=== PATIENT | male | born 1980 | race Caucasian/White ===

== ENCOUNTER 2025-01-24 10:32 | Outpatient (CLI) | payer OTHER, SELFPAY ==
--- NOTE | 2025-01-24 10:34 | XR_ITS ---
PROCEDURE INFORMATION: Exam: XR Left Knee Exam date and time: 01/24/2025 10:39 AM Age: 44 years old Clinical indication: Pain; Knee; Left; Additional info: Pain; P/a lat TECHNIQUE: Imaging protocol: Radiologic exam of the left knee. Views: 1 or 2 views. COMPARISON: No relevant prior studies available. FINDINGS: Bones/joints: Preservation of the joint spaces with moderate spurring medially especially from the femur. No lytic or sclerotic lesion. No fracture. Moderate patellofemoral arthritic changes with a small joint effusion. Soft tissues: Normal. IMPRESSION: Arthritis.
--- NOTE | 2025-01-24 10:43 | XR_ITS ---
PROCEDURE INFORMATION: Exam: XR Right Knee Exam date and time: 01/24/2025 10:44 AM Age: 44 years old Clinical indication: Pain; Knee; Right; Additional info: Pain; P/a lat TECHNIQUE: Imaging protocol: Radiologic exam of the right knee. Views: 1 or 2 views. COMPARISON: No relevant prior studies available. FINDINGS: Bones/joints: Preservation of the joint space however, marginal osteophytic spurring is seen moderate involving the medial compartment. There is [id number] patellofemoral arthritic changes. Small joint effusion. No fracture, dislocation or subluxation. Soft tissues: Normal. IMPRESSION: Arthritic spurring.
== END 2025-01-24 23:59 | disposition home or self-care (01) ==
LOC: RAD 10:34
PROVIDERS: PCP Family Medicine; Visit Provider Family Medicine
DX: M17.12 Unilateral primary osteoarthritis, left knee (principal); M76.9 Unspecified enthesopathy, lower limb, excluding foot; M25.561 Pain in right knee
CPT/HCPCS: 73560